=== PATIENT | female | born 1925 | race Caucasian/White ===

== ENCOUNTER 2016-11-11 18:03 | Emergency (ER) | payer MEDICARE, MEDICAID ==
[~2016-11-11 18:03] MED LIST: ACETAMINOPHEN325 M2 PO; AMBIEN10 MG; ANTACID ANTI-G355 ML PO; ANTI-ITCH30 GM TOP; ASPIR 8181 MG PO; ASPIRIN325 MG; ASPIRIN81 M1 PO; AURO22 ML EACH EAR; AZO DINE PO; AZO TABS95 MG PO; B COMPLEX1 CAP; B COMPLEX1 EAC1 PO; BANOPHEN ANTI-I28 GM TP; BENADRYL25 M3 PO; BENADRYL25 MG/TAB PO; BENZOCAINE TP; CARDIZEM CD180 M1 PO; CIPRO500 M1 PO; COLD EEZE PO; CULTURELLE1 EAC1 PO; DARVOCET-N 1001 TAB; DELSYM30 MG/5 M PO; DELSYM30 MG/5 M1 PO; DIPHENOXYLATE-1 EAC1 PO; GENTEAL25 ML; GLYCERIN PR; GOLD BOND MEDI TOP; GOLD BOND MEDI113 G2 TOP; HYDROCODON-ACE1 EA16 PO; HYDROGEN PEROXID1 ML TOP; HYDROGEN PEROXIDE TOP; ICY HOT NO MESS73 ML TOP; ICY HOT NO MESS73 ML TP; ISOPROPYL ALCOHOL TOP; LIDODERM30 EA TP; LIDODERM700 MG TOP; LIDODERM700 MG TP; LOMOTIL 2.5-0.1 EACH PO; LOMOTIL LIQUID60 ML; LOMOTIL1 TA3 PO; LORTAB 5-325 M1 EAC1 PO; LOTRIMIN AF12 GM TP; LOTRIMIN AF24 GM TP; LUNESTA3 MG; MAALOX SUSPENSI30 ML PO; MACROBID 100 M100 M1 PO; MAPAP500 M2 PO; METOPROLOL SUCC25 M1 PO; NATURE'S TEARS15 ML OP; NORCO 5-325 TA1 EACH PO; NORCO 5/3251 TAB PO; OXYCODONE/APAP PO; PETROLEUM JELL368 GM TOP; PROBIOTIC1 EA10 PO; SUPER B W/C1 CAP PO; SYSTANE BALANCE10 M1 OP; TRAMADOL HCL50 M2 PO; TRIPLE ANTIBIOT28 GM TOP; TYLENOL PO; TYLENOL325 M1 PO; TYLENOL500 MG PO; TYLENOL650 MG; ULTRAM50 M1 PO; VICKS VAPORUB170 G1 TOP; VITAMIN B-500 MCG/TA PO; VITAMIN B12500 MCG PO; VITAMIN C500 M3 PO; VITAMIN C500 MG PO; VITAMIN D31000 UNI4 PO; VITAMIN D31000 UNIT PO; VITAMIN E200 UNIT; [UNRECOGNIZED DRUG - OTHER]; [UNRECOGNIZED DRUG - OTHER] MM; [UNRECOGNIZED DRUG - OTHER] TOP; [UNRECOGNIZED DRUG - OTHER] TP; [UNRECOGNIZED DRUG - OTHER] TP; [UNRECOGNIZED DRUG - OTHER] TP
[2016-11-11 18:59] LABS: BASO % 0.7 % (0-2); EOS % 2.5 % (0-7); EOSINOPHIL ABSOLUTE COUNT 0.2 tho/cmm (0.0-0.7); HCT-HEMATOCRIT 37.6 % (34.0-49.0); HGB-HEMOGLOBIN 12.6 gm/dl (12.0-15.5); IMMATURE GRANULOCYTES ABSOLUTE 0.02 tho/cmm (0-0.03); IMMATURE GRANULOCYTES PERCENT 0.3 % (0-0.3); LYMPH % 34.6 % (20-45); LYMPH ABSOLUTE COUNT 2.1 tho/cmm (0.8-4.5); MCH (MEAN CORPUSCULAR HGB) 32.2 pg (28.0-32.0); MCHC MEAN CORPUSCULAR HGB CONC 33.5 % (32.0-36.0); MCV (MEAN CELL VOLUME) 96.2 fl (82.0-96.0); MEAN PLATELET VOLUME 9.7 cmc (9.4-12.4); MONOCYTE ABSOLUTE COUNT 0.6 tho/cmm (0.0-1.2); NEUTROPHIL ABSOLUTE COUNT 3.2 tho/cmm (1.6-8.0); NEUTROPHIL-AUTOMATED 3.2 tho/cmm (1.6-8.0); NEUTROPHILS % 51.9 % (40-80); PLATELET COUNT 189 tho/cmm (150-450); RED BLOOD COUNT 3.91 mil/cmm (4.00-5.20); RED CELL DISTRIBUTION WIDTH 12.4 % (12.4-16.4); WHITE BLOOD COUNT 6.1 tho/cmm (4.0-10.0)
[2016-11-11] MEDS ORDERED: ASPIRIN81 M1 PO (19:11)
[2016-11-11] MEDS ORDERED: ZYRTEC10 M7 PO (19:12)
[2016-11-11] MEDS ORDERED: ENSURE ORIGINA237 ML PO (19:13)
[2016-11-11] MEDS ORDERED: TOPROL XL25 M1 PO (19:14)
[2016-11-11] MEDS ORDERED: ATIVAN0.5 M1 PO (19:14)
[2016-11-11 19:15] LABS: ALB/GLOB RATIO 1.4 (0.8-2.0); ALKALINE PHOSPHATASE 64 U/L (33-138); ALT/SGPT 21 U/L (12-78); BILIRUBIN,TOTAL 0.6 mg/dl (0-1.5); BLOOD UREA NITROGEN 26 mg/dl (6-24); CARBON DIOXIDE-VENOUS 25 mmol/L (22-32); CHLORIDE 110 mmol/l (96-110); CREATININE 0.94 mg/dl (0.50-1.10); GLUCOSE 117 mg/dL (70-110); SODIUM 143 mmol/L (135-145); eGFR VALUE FOR BLACK 63 mL/Min
[2016-11-11] MEDS ORDERED: NAPROSYN500 M1 PO (19:15)
[2016-11-11] MEDS ORDERED: RESTASIS0.4 ML/EA EACH EYE (19:16)
[2016-11-11] MEDS ORDERED: VITAMIN D2000 UNI1 PO (19:18)
[2016-11-11 19:21] LABS: ANION GAP 12 mmol/L (0-20); AST/SGOT 24 U/L (10-40); POTASSIUM 4.4 mmol/L (3.7-5.1)
[2016-11-11] MEDS ORDERED: ANTI ITCH TOP (19:21)
[2016-11-11] MEDS ORDERED: ASPERCREME76.5 GM TOP (19:22)
[2016-11-11] MEDS ORDERED: LOMOTIL 2.5-0.1 EACH PO (19:24)
[2016-11-11] MEDS ORDERED: HYDROGEN PEROXID1 ML TOP (19:26)
[2016-11-11] MEDS ORDERED: [UNRECOGNIZED DRUG - OTHER] TOP (19:27)
[2016-11-11] MEDS ORDERED: ZOFRAN4 M2 PO (19:27)
[2016-11-11 19:29] LABS: URINE BILIRUBIN NEGATIVE (NEG); URINE BLOOD MODERATE (NEG); URINE GLUCOSE (UA) NEGATIVE (NEG); URINE KETONE SMALL (NEG); URINE LEUKOCYTE ESTERASE POSITIVE (NEG); URINE NITRITE NEGATIVE (NEG); URINE PROTEIN SMALL (NEG); URINE SPECIFIC GRAVITY 1.025 (1.003-1.030)
[2016-11-11] MEDS ORDERED: BLUE EMU CREAM TOP (19:29)
[2016-11-11] MEDS ORDERED: PETROLEUM JELL368 GM TOP (19:29)
[2016-11-11 19:30] LABS: URINE APPEARANCE CLOUDY; URINE COLOR YELLOW
[2016-11-11] MEDS ORDERED: TEA TREE1 ML TOP (19:30)
[2016-11-11] MEDS ORDERED: TRIPLE ANTIBIO1 EACH TOP (19:31)
[2016-11-11] MEDS ORDERED: ULTRAM50 M1 PO (19:31)
[2016-11-11] MEDS ORDERED: VICKS VAPORUB O50 G1 TOP (19:33)
[2016-11-11] MEDS ORDERED: [UNRECOGNIZED DRUG - OTHER] SSP (19:34)
[2016-11-11 19:37] LABS: URINE AMORPHOUS 1+; URINE MUCUS 1+
[2016-11-16] MEDS ORDERED: TYLENOL EXTRA500 M1 PO (11:47)
[2016-11-24] MEDS ORDERED: ASPERCREME 1035.4 GM TOP (12:25)
[2016-11-24] MEDS ORDERED: DIPHENHIST25 M3 PO (12:26)
[2016-11-24] MEDS ORDERED: HYDROCODON-ACE1 EA16 PO (12:28)
[2017-04-04] MEDS ORDERED: ASPIRIN81 M1 PO (08:51)
[2017-04-04] MEDS ORDERED: TOPROL XL25 M1 PO (08:54)
[2017-04-04] MEDS ORDERED: LIDOCAINE HCL120 GM TP (08:54)
[2017-04-04] MEDS ORDERED: RESTASIS0.4 ML/EA OP (08:54)
[2017-04-04] MEDS ORDERED: ATIVAN0.5 M1 PO (08:54)
[2017-04-04] MEDS ORDERED: VITAMIN D32000 UNI3 PO (08:55)
[2017-04-04] MEDS ORDERED: TYLENOL EXTRA500 M1 PO (08:57)
[2017-04-04] MEDS ORDERED: ANTI-ITCH28 GM TP (08:58)
[2017-04-04] MEDS ORDERED: LOMOTIL 2.5-0.1 EACH PO (08:59)
[2017-04-04] MEDS ORDERED: ASPERCREME1 EACH TP (08:59)
[2017-04-04] MEDS ORDERED: NORCO 7.5-3251 EACH PO (08:59)
[2017-04-04] MEDS ORDERED: HYDROGEN PEROXID1 ML TP (09:00)
[2017-04-04] MEDS ORDERED: ISOPROPYL ALCOHOL TP (09:02)
[2017-04-04] MEDS ORDERED: ALEVE220 M3 PO (09:03)
[2017-04-04] MEDS ORDERED: BLUE EMU CREAM TP (09:03)
[2017-04-04] MEDS ORDERED: TEA TREE1 ML TP (09:04)
[2017-04-04] MEDS ORDERED: PETROLEUM JELL368 GM TP (09:04)
[2017-04-04] MEDS ORDERED: TRIPLE ANTIBIO1 EACH TP (09:04)
[2017-04-04] MEDS ORDERED: VICKS VAPORUB170 G1 TP (09:05)
== END 2016-11-11 20:25 ==
LOC: EDMED 18:03
PROVIDERS: Physician Assistant
DX: N20.0 Calculus of kidney (principal); I10 Essential (primary) hypertension; Z87.442 Personal history of urinary calculi; M19.90 Unspecified osteoarthritis, unspecified site; Z90.710 Acquired absence of both cervix and uterus; Z90.49 Acquired absence of other specified parts of digestive tract; Z90.89 Acquired absence of other organs; Z96.653 Presence of artificial knee joint, bilateral; Z79.82 Long term (current) use of aspirin; Z79.899 Other long term (current) drug therapy
CPT/HCPCS: J1170; J2405; J7030

== ENCOUNTER 2016-11-16 13:29 | Observation (INO) | payer MEDICARE, MEDICAID ==
[2016-11-16 11:49] LABS: URINE BILIRUBIN NEGATIVE (NEG); URINE BLOOD SMALL (NEG); URINE GLUCOSE (UA) NEGATIVE (NEG); URINE KETONE NEGATIVE (NEG); URINE LEUKOCYTE ESTERASE NEGATIVE (NEG); URINE NITRITE NEGATIVE (NEG); URINE PROTEIN NEGATIVE (NEG)
[2016-11-16 11:52] LABS: URINE APPEARANCE CLEAR; URINE COLOR YELLOW
[2016-11-16 12:01] LABS: URINE EPITHELIAL CELLS 0-1 /[HPF] (0-10); URINE RBC 0-1 /[HPF] (0-5); URINE WBC 0-1 /[HPF] (0-5)
[2016-11-16 12:12] LABS: CREATININE 0.93 mg/dl (0.50-1.10); eGFR VALUE FOR BLACK 64 mL/Min
[~2016-11-16 13:29] MED LIST changes: +ANTI ITCH TOP; +ASPERCREME76.5 GM TOP; +ATIVAN0.5 M1 PO; +BLUE EMU CREAM TOP; +ENSURE ORIGINA237 ML PO; +NAPROSYN500 M1 PO; +RESTASIS0.4 ML/EA EACH EYE; +TEA TREE1 ML TOP; +TOPROL XL25 M1 PO; +TRIPLE ANTIBIO1 EACH TOP; +TYLENOL EXTRA500 M1 PO; +VICKS VAPORUB O50 G1 TOP; +VITAMIN D2000 UNI1 PO; +ZOFRAN4 M2 PO; +ZYRTEC10 M7 PO; +[UNRECOGNIZED DRUG - OTHER] SSP; +[UNRECOGNIZED DRUG - OTHER] TOP
[2016-11-17 06:03] LABS: ANION GAP 8 mmol/L (0-20); BLOOD UREA NITROGEN 21 mg/dl (6-24); CALCIUM 8.2 mg/dl (8.5-10.5); CARBON DIOXIDE-VENOUS 30 mmol/L (22-32); CHLORIDE 111 mmol/l (96-110); CREATININE 0.86 mg/dl (0.50-1.10); GLUCOSE 94 mg/dL (70-110); SODIUM 145 mmol/L (135-145); eGFR VALUE FOR BLACK 70 mL/Min
[2016-11-24] MEDS ORDERED: ASPERCREME 1035.4 GM TOP (12:25)
[2016-11-24] MEDS ORDERED: DIPHENHIST25 M3 PO (12:26)
[2016-11-24] MEDS ORDERED: HYDROCODON-ACE1 EA16 PO (12:28)
[2017-04-04] MEDS ORDERED: ASPIRIN81 M1 PO (08:51)
[2017-04-04] MEDS ORDERED: ATIVAN0.5 M1 PO (08:54)
[2017-04-04] MEDS ORDERED: RESTASIS0.4 ML/EA OP (08:54)
[2017-04-04] MEDS ORDERED: LIDOCAINE HCL120 GM TP (08:54)
[2017-04-04] MEDS ORDERED: TOPROL XL25 M1 PO (08:54)
[2017-04-04] MEDS ORDERED: VITAMIN D32000 UNI3 PO (08:55)
[2017-04-04] MEDS ORDERED: TYLENOL EXTRA500 M1 PO (08:57)
[2017-04-04] MEDS ORDERED: ANTI-ITCH28 GM TP (08:58)
[2017-04-04] MEDS ORDERED: ASPERCREME1 EACH TP (08:59)
[2017-04-04] MEDS ORDERED: LOMOTIL 2.5-0.1 EACH PO (08:59)
[2017-04-04] MEDS ORDERED: NORCO 7.5-3251 EACH PO (08:59)
[2017-04-04] MEDS ORDERED: HYDROGEN PEROXID1 ML TP (09:00)
[2017-04-04] MEDS ORDERED: ISOPROPYL ALCOHOL TP (09:02)
[2017-04-04] MEDS ORDERED: ALEVE220 M3 PO (09:03)
[2017-04-04] MEDS ORDERED: BLUE EMU CREAM TP (09:03)
[2017-04-04] MEDS ORDERED: PETROLEUM JELL368 GM TP (09:04)
[2017-04-04] MEDS ORDERED: TRIPLE ANTIBIO1 EACH TP (09:04)
[2017-04-04] MEDS ORDERED: TEA TREE1 ML TP (09:04)
[2017-04-04] MEDS ORDERED: VICKS VAPORUB170 G1 TP (09:05)
== END 2016-11-17 15:10 ==
LOC: EDMED 13:29 → EMR2 16:38 → CAR1 18:27
PROVIDERS: Emergency Medicine; ADMIT Internal Medicine
DX: N20.0 Calculus of kidney (principal); M48.00 Spinal stenosis, site unspecified; G89.29 Other chronic pain; M19.90 Unspecified osteoarthritis, unspecified site; K57.92 Diverticulitis of intestine, part unspecified, without perforation or abscess without bleeding; F03.90 Unspecified dementia, unspecified severity, without behavioral disturbance, psychotic disturbance, mood disturbance, and anxiety; K58.9 Irritable bowel syndrome, unspecified; I10 Essential (primary) hypertension; Z66 Do not resuscitate; Z79.82 Long term (current) use of aspirin; Z79.899 Other long term (current) drug therapy; Z88.0 Allergy status to penicillin; Z88.1 Allergy status to other antibiotic agents; Z88.2 Allergy status to sulfonamides; Z88.5 Allergy status to narcotic agent; Z88.7 Allergy status to serum and vaccine; Z88.8 Allergy status to other drugs, medicaments and biological substances; Z86.73 Personal history of transient ischemic attack (TIA), and cerebral infarction without residual deficits; Z90.710 Acquired absence of both cervix and uterus; Z90.49 Acquired absence of other specified parts of digestive tract; Z90.89 Acquired absence of other organs; Z96.653 Presence of artificial knee joint, bilateral; Z98.890 Other specified postprocedural states
CPT/HCPCS: G0378; G8978-GP-CH; G8979-GP-CH; G8980-GP-CH; J1170; J7030

== ENCOUNTER 2016-11-25 08:04 | Day surgery (SDC) | payer MEDICARE, MEDICAID ==
[~2016-11-25 08:04] MED LIST changes: +ASPERCREME 1035.4 GM TOP; +DIPHENHIST25 M3 PO
[2017-04-04] MEDS ORDERED: ASPIRIN81 M1 PO (08:51)
[2017-04-04] MEDS ORDERED: LIDOCAINE HCL120 GM TP (08:54)
[2017-04-04] MEDS ORDERED: RESTASIS0.4 ML/EA OP (08:54)
[2017-04-04] MEDS ORDERED: ATIVAN0.5 M1 PO (08:54)
[2017-04-04] MEDS ORDERED: TOPROL XL25 M1 PO (08:54)
[2017-04-04] MEDS ORDERED: VITAMIN D32000 UNI3 PO (08:55)
[2017-04-04] MEDS ORDERED: TYLENOL EXTRA500 M1 PO (08:57)
[2017-04-04] MEDS ORDERED: ANTI-ITCH28 GM TP (08:58)
[2017-04-04] MEDS ORDERED: LOMOTIL 2.5-0.1 EACH PO (08:59)
[2017-04-04] MEDS ORDERED: ASPERCREME1 EACH TP (08:59)
[2017-04-04] MEDS ORDERED: NORCO 7.5-3251 EACH PO (08:59)
[2017-04-04] MEDS ORDERED: HYDROGEN PEROXID1 ML TP (09:00)
[2017-04-04] MEDS ORDERED: ISOPROPYL ALCOHOL TP (09:02)
[2017-04-04] MEDS ORDERED: ALEVE220 M3 PO (09:03)
[2017-04-04] MEDS ORDERED: BLUE EMU CREAM TP (09:03)
[2017-04-04] MEDS ORDERED: PETROLEUM JELL368 GM TP (09:04)
[2017-04-04] MEDS ORDERED: TRIPLE ANTIBIO1 EACH TP (09:04)
[2017-04-04] MEDS ORDERED: TEA TREE1 ML TP (09:04)
[2017-04-04] MEDS ORDERED: VICKS VAPORUB170 G1 TP (09:05)
== END 2016-11-25 13:55 ==
LOC: SRG 08:04 → SHSB 08:05 → ORE 10:07 → PACU 11:02 → SHSB 12:10
PROC: 0TF3XZZ Fragmentation in Right Kidney Pelvis, External Approach (ICD-10-PCS; principal; 2016-11-25)
DX: N20.0 Calculus of kidney (principal); I10 Essential (primary) hypertension; F32.9 Major depressive disorder, single episode, unspecified; K58.9 Irritable bowel syndrome, unspecified; Z88.8 Allergy status to other drugs, medicaments and biological substances; Z79.899 Other long term (current) drug therapy; Z98.890 Other specified postprocedural states; Z86.73 Personal history of transient ischemic attack (TIA), and cerebral infarction without residual deficits; Z90.49 Acquired absence of other specified parts of digestive tract; Z90.710 Acquired absence of both cervix and uterus
CPT/HCPCS: J0744; J3010

== ENCOUNTER 2016-12-04 11:12 | Emergency (ER) | payer MEDICARE, MEDICAID ==
[2016-12-04] MEDS ORDERED: ZYRTEC10 M7 PO (11:51)
[2016-12-04] MEDS ORDERED: ASPIRIN81 M1 PO (11:51)
[2016-12-04] MEDS ORDERED: [UNRECOGNIZED DRUG - OTHER] PO (11:52)
[2016-12-04] MEDS ORDERED: ATIVAN0.5 M1 PO (11:52)
[2016-12-04] MEDS ORDERED: TOPROL XL25 M1 PO (11:52)
[2016-12-04] MEDS ORDERED: RESTASIS0.4 ML/EA OP (11:53)
[2016-12-04] MEDS ORDERED: TYLENOL EXTRA500 M1 PO (11:53)
[2016-12-04] MEDS ORDERED: VITAMIN D32000 UNI3 PO (11:53)
[2016-12-04] MEDS ORDERED: ANTI-ITCH 2%-0.35 GM TP (11:54)
[2016-12-04] MEDS ORDERED: ASPERCREME 1035.4 GM TP (11:54)
[2016-12-04] MEDS ORDERED: DIPHENHIST25 M2 PO (11:56)
[2016-12-04] MEDS ORDERED: HYDROCODON-ACE1 EA16 PO (11:56)
[2016-12-04] MEDS ORDERED: DIPHENOXYLATE-1 EAC1 PO (11:57)
[2016-12-04] MEDS ORDERED: HYDROGEN PEROXID1 ML TP (11:58)
[2016-12-04] MEDS ORDERED: ISOPROPYL ALCOHOL TP (11:59)
[2016-12-04] MEDS ORDERED: ZOFRAN4 M2 PO (11:59)
[2016-12-04] MEDS ORDERED: PETROLEUM JELL368 GM TP (12:00)
[2016-12-04] MEDS ORDERED: BLUE EMU CREAM TP (12:00)
[2016-12-04] MEDS ORDERED: TEA TREE1 ML TP (12:01)
[2016-12-04] MEDS ORDERED: ULTRAM50 M1 PO ×2 (12:02→14:26)
[2016-12-04] MEDS ORDERED: TRIPLE ANTIBIO1 EAC1 TP (12:02)
[2016-12-04] MEDS ORDERED: VICKS VAPORUB170 G1 TP (12:03)
[2016-12-04 12:16] LABS: BASO % 0.6 % (0-2); EOS % 3.3 % (0-7); EOSINOPHIL ABSOLUTE COUNT 0.2 tho/cmm (0.0-0.7); HCT-HEMATOCRIT 36.5 % (34.0-49.0); HGB-HEMOGLOBIN 12.5 gm/dl (12.0-15.5); IMMATURE GRANULOCYTES ABSOLUTE 0.01 tho/cmm (0-0.03); IMMATURE GRANULOCYTES PERCENT 0.2 % (0-0.3); LYMPH % 37.6 % (20-45); LYMPH ABSOLUTE COUNT 1.8 tho/cmm (0.8-4.5); MCH (MEAN CORPUSCULAR HGB) 32.4 pg (28.0-32.0); MCHC MEAN CORPUSCULAR HGB CONC 34.2 % (32.0-36.0); MCV (MEAN CELL VOLUME) 94.6 fl (82.0-96.0); MEAN PLATELET VOLUME 9.8 cmc (9.4-12.4); MONO % 11.2 % (0-12); MONOCYTE ABSOLUTE COUNT 0.5 tho/cmm (0.0-1.2); NEUTROPHIL ABSOLUTE COUNT 2.3 tho/cmm (1.6-8.0); NEUTROPHIL-AUTOMATED 2.3 tho/cmm (1.6-8.0); NEUTROPHILS % 47.1 % (40-80); PLATELET COUNT 198 tho/cmm (150-450); RED BLOOD COUNT 3.86 mil/cmm (4.00-5.20); RED CELL DISTRIBUTION WIDTH 12.2 % (12.4-16.4); WHITE BLOOD COUNT 4.8 tho/cmm (4.0-10.0)
[2016-12-04 12:26] LABS: ALB/GLOB RATIO 1.1 (0.8-2.0); ALBUMIN 3.7 g/dl (3.5-5.0); ALKALINE PHOSPHATASE 60 U/L (33-138); ALT/SGPT 22 U/L (12-78); ANION GAP 12 mmol/L (0-20); AST/SGOT 23 U/L (10-40); BILIRUBIN,TOTAL 0.7 mg/dl (0-1.5); BLOOD UREA NITROGEN 21 mg/dl (6-24); CARBON DIOXIDE-VENOUS 25 mmol/L (22-32); CHLORIDE 108 mmol/l (96-110); CREATININE 0.86 mg/dl (0.50-1.10); GLUCOSE 97 mg/dL (70-110); SODIUM 141 mmol/L (135-145); eGFR VALUE FOR BLACK 69 mL/Min
[2016-12-04 12:50] LABS: URINE BILIRUBIN NEGATIVE (NEG); URINE BLOOD SMALL (NEG); URINE GLUCOSE (UA) NEGATIVE (NEG); URINE KETONE NEGATIVE (NEG); URINE LEUKOCYTE ESTERASE NEGATIVE (NEG); URINE NITRITE NEGATIVE (NEG); URINE PROTEIN NEGATIVE (NEG); URINE SPECIFIC GRAVITY 1.015 (1.003-1.030)
[2016-12-04 12:51] LABS: URINE APPEARANCE CLEAR; URINE COLOR PALE YELLOW
[2016-12-04 12:57] LABS: URINE EPITHELIAL CELLS 0-2 /[HPF] (0-10); URINE WBC 0 /[HPF] (0-5)
[2017-04-04] MEDS ORDERED: ASPIRIN81 M1 PO (08:51)
[2017-04-04] MEDS ORDERED: TOPROL XL25 M1 PO (08:54)
[2017-04-04] MEDS ORDERED: RESTASIS0.4 ML/EA OP (08:54)
[2017-04-04] MEDS ORDERED: LIDOCAINE HCL120 GM TP (08:54)
[2017-04-04] MEDS ORDERED: ATIVAN0.5 M1 PO (08:54)
[2017-04-04] MEDS ORDERED: VITAMIN D32000 UNI3 PO (08:55)
[2017-04-04] MEDS ORDERED: TYLENOL EXTRA500 M1 PO (08:57)
[2017-04-04] MEDS ORDERED: ANTI-ITCH28 GM TP (08:58)
[2017-04-04] MEDS ORDERED: LOMOTIL 2.5-0.1 EACH PO (08:59)
[2017-04-04] MEDS ORDERED: ASPERCREME1 EACH TP (08:59)
[2017-04-04] MEDS ORDERED: NORCO 7.5-3251 EACH PO (08:59)
[2017-04-04] MEDS ORDERED: HYDROGEN PEROXID1 ML TP (09:00)
[2017-04-04] MEDS ORDERED: ISOPROPYL ALCOHOL TP (09:02)
[2017-04-04] MEDS ORDERED: ALEVE220 M3 PO (09:03)
[2017-04-04] MEDS ORDERED: BLUE EMU CREAM TP (09:03)
[2017-04-04] MEDS ORDERED: PETROLEUM JELL368 GM TP (09:04)
[2017-04-04] MEDS ORDERED: TEA TREE1 ML TP (09:04)
[2017-04-04] MEDS ORDERED: TRIPLE ANTIBIO1 EACH TP (09:04)
[2017-04-04] MEDS ORDERED: VICKS VAPORUB170 G1 TP (09:05)
== END 2016-12-04 14:41 ==
LOC: EDMED 11:12
PROVIDERS: Emergency Medicine
DX: M54.9 Dorsalgia, unspecified (principal); E87.5 Hyperkalemia; I10 Essential (primary) hypertension; Z87.442 Personal history of urinary calculi; Z79.82 Long term (current) use of aspirin; Z79.899 Other long term (current) drug therapy
CPT/HCPCS: J1170; J2405; J7030